=== PATIENT | male | born 1955 | race Caucasian/White ===

== ENCOUNTER 2016-11-06 06:28 | Day surgery (SDC) | payer OTHER ==
[2016-11-06] MEDS ORDERED: Sodium Chloride 0.9% 1,000 ML IV SCH (06:30)
[2016-11-06 08:11] VITALS: BP 124/84
--- NOTE | 2016-11-06 08:14 | PCM.OPNOTE ---
- General Post-Op/Procedure Note Date of Surgery/Procedure: 11/06/16 Operative Procedure(s): complete colonoscopy Findings: Normal Colon from Cecum to Rectum Pre Op Diagnosis: screening colonoscopy Post-Op Diagnosis: Normal Colon from Cecum to Rectum Primary Surgeon: Gera Carrillo Sr Condition: Good Free Text/Narrative:: Sreedhar is a 61-year-old male comes in for screening colonoscopy. The risks and benefits were explained to the patient. He chose not to take any anesthesia. This procedure done as an outpatient. The Olympus 180L scope was used. With the gloved finger the rectum was examined and the prostate was a grade 3/6 symmetrical and soft. The tube was placed into the rectum and advanced under direct vision we did get to the cecum. No anesthetics were used. Upon retraction of the tube noted no lesions ulceration or abnormality throughout the entire colon. The rectum was unremarkable as well. The tube was removed the patient tolerated the procedure well. Preop: Screening colonoscopy. Postop: Normal colon from cecum to rectum. Routine screening should be done for this gentleman is a repeat exam in 10 years.
== END 2016-11-06 08:30 | disposition home or self-care (01) ==
LOC: JP.SDS 06:28
PROVIDERS: ATTEND Internal Medicine
DX: Z12.11 Encounter for screening for malignant neoplasm of colon (principal)
CPT/HCPCS: 45378; J7040

== ENCOUNTER 2020-08-24 17:58 | Emergency (ER) | payer OTHER ==
--- NOTE | 2020-08-24 18:56 | EDM.PDOC ---
ED HPI GENERAL MEDICAL PROBLEM - General Chief Complaint: Respiratory Problem Stated Complaint: RESPIRATORY DISTRESS Time Seen by Provider: 08/24/20 18:44 Source of Information: Reports: Patient History Limitations: Reports: No Limitations - History of Present Illness INITIAL COMMENTS - FREE TEXT/NARRATIVE: Patient presents for evaluation of sudden onset right shoulder right anterior chest and right infrascapular sharp stabbing pains at approximately 1300 hrs. today. 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 He is three fourths of the way through regimens of chemotherapy and radiation therapy. He was in [place] today for his scheduled radiation and on the way home noticed a stabbing severe pain in the right shoulder region at first. There the pain went down the front of the chest focusing on an area in the lowest anterior rib middle portions. The pain then wrapped around the right hemithorax and settled in an area just below the right scapula. Movement definitely makes it worse as does coughing or burping. Apart from that, he can still have sudden sharp stabbing pains with no particular activity. This is never happened before. No other recent new illness concerns. No prescription medication changes. Onset: Today Onset Date: 08/24/20 Onset Time: 13:00 Duration: Hour(s): Location: Reports: Chest, Upper Extremity, Right Quality: Reports: Burning, Stabbing Severity: Moderate Improves with: Reports: None Worsens with: Reports: Other (Cough or burping causes pain as well.), Movement Right Upper Chest Pain Score (Numeric/FACES): 4 - Related Data Allergies Allergy/AdvReac Type Severity Reaction Status Date / Time No Known Allergies Allergy Verified 08/24/20 18:13 Home Meds: Home Meds Docusate Sodium 200 mg PO DAILY 08/24/20 [History] OLANZapine [Olanzapine] 5 mg PO ASDIRECTED 08/24/20 [History] Omeprazole 20 mg PO DAILY 08/24/20 [History] Prochlorperazine [Compazine] 1 tab PO QID PRN 08/24/20 [History] dexAMETHasone [Dexamethasone] 1 tab PO ASDIRECTED 08/24/20 [History] oxyCODONE 1 tab PO Q4H PRN 08/24/20 [History] Past Medical History - Past Health History Medical/Surgical History: Denies Medical/Surgical History HEENT History: Reports: Impaired Vision Gastrointestinal History: Reports: Hemorrhoids Genitourinary History: Reports: BPH Musculoskeletal History: Reports: Fracture, Osteoarthritis Other Musculoskeletal History: L knee pain Oncologic (Cancer) History: Reports: Basal Cell Carcinoma - Infectious Disease History Infectious Disease History: Reports: Chicken Pox, Measles - Past Surgical History HEENT Surgical History: Reports: Tonsillectomy Other HEENT Surgeries/Procedures: Aprox 2 months ago 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 Is on chemo and radiation. Male Surgical History: Reports: None Musculoskeletal Surgical History: Reports: Arthroscopic Knee, Arthroscopic Procedure Social & Family History - Tobacco Use Tobacco Use Status *Q: Never Tobacco User Second Hand Smoke Exposure: No - Caffeine Use Caffeine Use: Reports: Coffee - Recreational Drug Use Recreational Drug Use: No ED ROS GENERAL - Review of Systems Review Of Systems: See Below Constitutional: Reports: Weakness HEENT: Reports: Throat Pain (Related to cancer presence and treatment of same.) Respiratory: Reports: Pleuritic Chest Pain. Denies: Shortness of Breath, Cough Cardiovascular: Reports: No Symptoms Endocrine: Reports: Fatigue GI/Abdominal: Reports: No Symptoms Musculoskeletal: Reports: Shoulder Pain, Other (Pain in low anterior mid rib pain with radiation around to the right infrascapular region. Compression of this area reproduces pain.). Denies: Leg Pain Skin: Reports: Change in Color (Neck skin color changes on the right upper chest and neck region related to radiation therapy.) ED EXAM, GENERAL - Physical Exam Exam: See Below Free Text/Narrative:: This is an adult male interviewed in room 10. During our discussion he has spontaneous pain appearing episodes that seem quite intense and brief. Exam Limited By: No Limitations General Appearance: Moderate Distress Head: Atraumatic Neck: Other (Erythematous skin on right neck and shoulder region.) Respiratory/Chest: No Respiratory Distress, Lungs Clear. No: Respiratory Distress, Pleural Rub Cardiovascular: Tachycardia Course - Vital Signs Last Recorded V/S: Last Vital Signs Temp 36.3 C 08/24/20 18:10 Pulse 67 08/24/20 21:06 Resp 16 08/24/20 21:06 BP 137/95 H 08/24/20 21:06 Pulse Ox 97 08/24/20 21:06 - Orders/Labs/Meds Orders: Active Orders 24 hr Category Date Time Status Chest 2V [CR] Stat Exams 08/24/20 19:03 Ordered Iopamidol [Isovue-370 (76%)] Med 08/24/20 20:30 Active 100 ml IV . DIRECTED Sodium Chloride 0.9% [Normal Saline] 100 ml Med 08/24/20 20:30 Active IV ASDIRECTED Sodium Chloride 0.9% [Saline Flush] Med 08/24/20 19:05 Ordered 10 ml FLUSH ASDIRECTED PRN Saline Lock Insert [OM.PC] Routine Oth 08/24/20 19:05 Ordered Medication Orders Sodium Chloride (Normal Saline) 100 mls @ 4 mls/sec IV ASDIRECTED HEATHER Last Admin: 08/24/20 20:41 Dose: 4 mls/sec Documented by: Iopamidol (Isovue-370 (76%)) 100 ml IV . DIRECTED [facility] Last Admin: 08/24/20 20:41 Dose: 100 ml Documented by: Sodium Chloride (Saline Flush) 10 ml FLUSH ASDIRECTED PRN PRN Reason: Keep Vein Open Last Admin: 08/24/20 20:41 Dose: 10 ml Documented by: Labs: Laboratory Tests 08/24/20 08/24/20 08/24/20 Range/Units 19:19 19:19 19:19 WBC 4.4 L (4.5-11.0) K/uL RBC 3.82 L (4.30-5.90) M/uL Hgb 11.2 L (12.0-15.0) g/dL Hct 32.7 L (40.0-54.0) % MCV 86 (80-98) fL MCH 29 (27-31) pg MCHC 34 (32-36) % Plt Count 168 (150-400) K/uL Neut % (Auto) 77 H (36-66) % Lymph % (Auto) 9 L (24-44) % [place] % (Auto) 14 H (2-6) % Eos % (Auto) 0 L (2-4) % Baso % (Auto) 0 (0-1) % D-Dimer, Quantitative 2869.92 H (0.0-500.0) ng/mL Sodium 133 L (140-148) mmol/L Potassium 4.3 (3.6-5.2) mmol/L Chloride 95 L (100-108) mmol/L Carbon Dioxide 29 (21-32) mmol/L Anion Gap 13.3 (5.0-14.0) mmol/L BUN 21 H (7-18) mg/dL Creatinine 0.9 (0.8-1.3) mg/dL Est Cr Clr Drug Dosing 83.36 mL/min Estimated GFR (MDRD) > 60 (>60) Glucose 97 (74-106) mg/dL Calcium 8.3 L (8.5-10.1) mg/dL Total Bilirubin 0.6 (0.2-1.0) mg/dL AST 27 (15-37) U/L ALT 84 H (12-78) U/L Alkaline Phosphatase 114 (46-116) U/L C-Reactive Protein (0.0-0.3) mg/dL Total Protein 6.3 L (6.4-8.2) g/dL Albumin 3.4 (3.4-5.0) g/dL Globulin 2.9 (2.3-3.5) g/dL Albumin/Globulin Ratio 1.2 (1.2-2.2) 18/20 Range/Units 19:19 WBC (4.5-11.0) K/uL RBC (4.30-5.90) M/uL Hgb (12.0-15.0) g/dL Hct (40.0-54.0) % MCV (80-98) fL MCH (27-31) pg MCHC (32-36) % Plt Count (150-400) K/uL Neut % (Auto) (36-66) % Lymph % (Auto) (24-44) % [place] % (Auto) (2-6) % Eos % (Auto) (2-4) % Baso % (Auto) (0-1) % D-Dimer, Quantitative (0.0-500.0) ng/mL Sodium (140-148) mmol/L Potassium (3.6-5.2) mmol/L Chloride (100-108) mmol/L Carbon Dioxide (21-32) mmol/L Anion Gap (5.0-14.0) mmol/L BUN (7-18) mg/dL Creatinine (0.8-1.3) mg/dL Est Cr Clr Drug Dosing mL/min Estimated GFR (MDRD) (>60) Glucose (74-106) mg/dL Calcium (8.5-10.1) mg/dL Total Bilirubin (0.2-1.0) mg/dL AST (15-37) U/L ALT (12-78) U/L Alkaline Phosphatase (46-116) U/L C-Reactive Protein 0.27 (0.0-0.3) mg/dL Total Protein (6.4-8.2) g/dL Albumin (3.4-5.0) g/dL Globulin (2.3-3.5) g/dL Albumin/Globulin Ratio (1.2-2.2) Meds: Medications Generic Name Dose Route Start Last Admin Trade Name Freq PRN Reason Stop Dose Admin Sodium Chloride 100 mls @ 4 mls/sec 08/24/20 20:30 08/24/20 20:41 Normal Saline IV 4 mls/sec ASDIRECTED HEATHER Administration Iopamidol 100 ml 08/24/20 20:30 08/24/20 20:41 Isovue-370 (76%) IV 100 ml . DIRECTED HEATHER Administration Sodium Chloride 10 ml 08/24/20 19:05 08/24/20 20:41 Saline Flush FLUSH 10 ml ASDIRECTED PRN Administration Keep Vein Open Discontinued Medications Generic Name Dose Route Start Last Admin Trade Name Freq PRN Reason Stop Dose Admin Hydromorphone HCl 1 mg 08/24/20 19:05 08/24/20 19:44 Dilaudid IVPUSH 08/24/20 19:06 1 mg ONETIME ONE Administration Sodium Chloride 1,000 mls @ 999 mls/hr 08/24/20 20:14 08/24/20 19:52 Normal Saline IV 08/24/20 21:14 999 mls/hr .BOLUS ONE Administration Ketorolac Tromethamine 30 mg 08/24/20 19:05 08/24/20 19:42 Toradol IVPUSH 08/24/20 19:06 30 mg ONETIME ONE Administration - Re-Assessments/Exams Free Text/Narrative Re-Assessment/Exam: 08/24/20 19:09 Patient will be given Toradol 30 mg and Dilaudid 1 mg, both as IV doses. We will obtain chest imaging and look at inflammatory and infective lab markers. 08/24/20 20:14 After receiving pain medications, the patient became significantly hypotensive. He was placed in a supine position and a normal saline rapid infusion was initiated. He was feeling better after the fluid and that brief bolus of pain medication. I discussed with him that his D-dimer test is significantly elevated at a level of 2800+. His symptoms tonight could be a sign of a blood clot in the lungs. I discussed doing a CT angiogram of the chest and he agrees. 08/24/20 21:22 08/24/20 21:37 I reviewed angiogram findings with the patient which show bilateral pulmonary emboli with moderate clot burden. The right lung is more involved than the left. No evidence of cardiac compromise. I discussed his case with oncology on-call at [facility] in [place]. They recommend initiating Lovenox 80 mg twice daily until he can be seen in follow-up on Thursday, 27 August. He was given the first injection here and was sent with a prescription for 3 more days to cover him until his appointments on Thursday. Multiple questions answered. He was discharged in stable condition. Departure - Departure Time of Disposition: 21:40 Disposition: Home, Self-Care 01 Clinical Impression: Pleuritic chest pain, Tonsillar cancer Pulmonary emboli Qualifiers: Pulmonary embolism type: multiple subsegmental (without acute cor pulmonale) Qualified Code(s): I26.94 - Multiple subsegmental pulmonary emboli without acute cor pulmonale - Discharge Information Referrals: PCP,None [Primary Care Provider] - Forms: ED Department Discharge Additional Instructions: You received your first injection of Lovenox, the anticoagulant being used to treat your blood clots in the lungs. Fill the prescription for the additional doses of this medication tomorrow and take it twice a day until you are seen in oncology on Thursday. If feeling worse in any way before then return to emergency department. Sepsis Event Note (ED) - Evaluation Sepsis Screening Result: No Definite Risk - Focused Exam Vital Signs: Vital Signs Temp Pulse Resp BP Pulse Ox 08/24/20 21:06 67 16 137/95 H 97 08/24/20 20:26 77 16 128/90 97 08/24/20 20:06 86 119/80 08/24/20 19:54 79 16 99/70 97 08/24/20 19:48 85 18 126/87 96 08/24/20 18:10 36.3 C 102 H 20 142/93 H 96 - My Orders Last 24 Hours: My Active Orders 08/24/20 19:03 Chest 2V [CR] Stat 08/24/20 19:05 Sodium Chloride 0.9% [Saline Flush] 10 ml FLUSH ASDIRECTED PRN Saline Lock Insert [OM.PC] Routine 08/24/20 20:30 Iopamidol [Isovue-370 (76%)] 100 ml IV . DIRECTED Sodium Chloride 0.9% [Normal Saline] 100 ml IV ASDIRECTED - Assessment/Plan Last 24 Hours: My Active Orders 08/24/20 19:03 Chest 2V [CR] Stat 08/24/20 19:05 Sodium Chloride 0.9% [Saline Flush] 10 ml FLUSH ASDIRECTED PRN Saline Lock Insert [OM.PC] Routine 08/24/20 20:30 Iopamidol [Isovue-370 (76%)] 100 ml IV . DIRECTED Sodium Chloride 0.9% [Normal Saline] 100 ml IV ASDIRECTED
[2020-08-24] MEDS ORDERED: Ketorolac 30 MG/ML SDV IVPUSH ONE (19:05)
[2020-08-24] MEDS ORDERED: HYDROmorphone 1 MG/ML Syringe IVPUSH ONE (19:05)
[2020-08-24] MEDS: Sodium Chloride 0.9% 10 ML Syringe FLUSH PRN ×2 (19:42→20:41)
[2020-08-24] MEDS ORDERED: Sodium Chloride 0.9% 1,000 ML IV ONE (20:14)
[2020-08-24] MEDS ORDERED: Iopamidol 755 Mg/ML 100 ML Bottle IV SCH (20:30)
[2020-08-24] MEDS ORDERED: Sodium Chloride 0.9% 100 ML IV SCH (20:30)
--- NOTE | 2020-08-24 21:09 | CRLCT ---
INDICATION: Sharp right-sided chest pain. Elevated D-dimer. CT CHEST WITH CONTRAST TECHNIQUE: Multidetector CT imaging was performed through the chest following intravenous contrast administration using 100 mL Isovue 370. Coronal and sagittal reconstructions were generated. COMPARISON: None. FINDINGS: Lungs and airways: Moderate bibasilar lung atelectasis and/or fibrosis. No confluent pulmonary consolidation identified. Central airways are patent. Pleura and pleural spaces: Trace right pleural effusion. Heart and mediastinum: Normal heart size. Upper normal RV/LV ratio with no definite evidence of cardiac strain. No significant pericardial effusion. No pathologically enlarged mediastinal lymph nodes. Vascular structures: Several filling defects in the pulmonary arterial tree consistent with pulmonary emboli including thrombi within branches to the right upper lobe, right middle lobe, right lower lobe, lingula, and left lower lobe. Moderate overall clot burden. Normal caliber thoracic aorta. Chest wall and axillae: No mass or axillary lymphadenopathy. Osseous structures: Mild spinal degenerative changes. No acute fractures identified. Upper abdomen: Small hiatal hernia. IMPRESSION: Multiple bilateral pulmonary emboli, greater on the right than the left, with moderate overall clot burden. Results were called to Dr. Kaplan at 9:08 p.m. on 08/24/2020. JEAN AUGUSTINE MD [employer] Dictated by Nicolás Augustine MD @ 08/24/2020 9:07:08 PM Dictated by: Nicolás Augustine MD @ 08/24/2020 21:08:18 (Electronically Signed)
[2020-08-24 21:20] VITALS: BP 137/95; PULSE 67
[2020-08-24] MEDS ORDERED: Enoxaparin 80 MG/0.8 ML Syringe SUBCUT ONE (21:36)
--- NOTE | 2020-08-27 09:26 | CR ---
CHEST: 2 view CLINICAL HISTORY:Right-sided chest pain COMPARISON:None FINDINGS: There is some patchy density in the right lower lobe. There is some minimal density in the lingula. Heart size and pulmonary vascularity are normal. There are no effusions. There are atherosclerotic changes in the aorta. Impression: Patchy bibasal densities. Pneumonia is not excluded
== END 2020-08-24 21:58 | disposition home or self-care (01) ==
LOC: JP.ED 17:58
DX: I26.94 Multiple subsegmental thrombotic pulmonary emboli without acute cor pulmonale (principal); C09.9 Malignant neoplasm of tonsil, unspecified; R07.81 Pleurodynia; M25.511 Pain in right shoulder
CPT/HCPCS: 36415; 71046; 71046-26; 71275; 80053; 85025; 85379; 86140; 96372; 96374; 96375; 99285; 99285-25; J1170; J1650; J1885; J7030; Q9967